=== PATIENT | male | born 1995 | race Caucasian/White ===

== ENCOUNTER 2023-09-21 14:17 | Outpatient (CLI) | payer OTHER, SELFPAY ==
--- NOTE | ~2023-09-21 | XR_ITS ---
EXAMINATION: XR chest 2V Exam Date/Time: 09/21/2023 14:35 CDT HISTORY: R05.3 - Chronic cough X 4 WEEKS Comparison: None. RESULT: Lines, tubes, and devices: None. Lungs and pleura: Clear. Cardiomediastinal silhouette: Normal. Other: No acute osseous or upper abdominal finding. IMPRESSION: No acute cardiopulmonary process. Reviewed, dictated and finalized at location K.
== END 2023-09-21 14:18 | disposition home or self-care (01) ==
PROVIDERS: PCP Family Medicine; Visit Provider Physician Assistant Medical
DX: R05.3 Chronic cough (principal)
CPT/HCPCS: 71046

== ENCOUNTER 2024-04-04 18:52 | Emergency (ER) | payer OTHER, SELFPAY ==
[2024-04-04 19:00] VITALS: BP 136/97; PULSE 84; RESP 23; TEMP 37.1; O2SAT 97
--- NOTE | 2024-04-04 19:32 | ED.URI ---
HPI - URI/Sore Throat General Chief Complaint: Upper Respiratory Infection Stated Complaint: COUGH Time Seen by Provider: 04/04/24 19:32 Source: patient Mode of arrival: ambulatory Limitations: no limitations History of Present Illness HPI Narrative: 48-year-old male presents with complaint of continued cough, chest congestion, shortness of breath with exertion. Patient reports that he was diagnosed with pneumonia approximately 2-3 weeks ago at [facility] urgent care. States pneumonia to was right lower lung. Was given Augmentin. Did have a fever at that time. Reports that fever resolved but cough never improved. Was given albuterol inhaler but states he is having a hard time figuring out how to use it. All systems reviewed and negative except as noted above. Related Data Home Medications Medication Instructions Recorded Confirmed bupropion HCl 300 mg 24 hr tablet, 300 mg PO QAM 08/25/23 02/24/24 extended release (Wellbutrin XL) amoxicillin 875 mg-potassium tablet 04/04/24 clavulanate 125 mg tablet azithromycin 250 mg tablet mg 04/04/24 benzonatate 100 mg capsule mg PO 04/04/24 vilazodone 40 mg tablet mg 04/04/24 Allergies Allergy/AdvReac Type Severity Reaction Status Date / Time No Known Allergies Allergy Verified 04/04/24 19:05 Review of Systems Review of Systems: CONSTITUTIONAL: Denies fever, chills, or sweats. Reports fatigue. EYES: Denies visual changes, redness, or discharge. ENT: Denies rhinorrhea, congestion, sore throat, or otalgia. CARDIOVASCULAR: Denies chest pain, palpitations, or edema. RESPIRATORY: Reports cough, chest congestion, dyspnea with exertion. GASTROINTESTINAL: Denies abdominal pain, nausea, vomiting, or diarrhea. GENITOURINARY: Denies dysuria or hematuria. SKIN: Denies rash or itching. MUSCULOSKELETAL: Denies back pain, joint pain, or myalgia. NEUROLOGIC: Denies headache, numbness, or weakness. PSYCHIATRIC: Denies anxiety or depression. All other systems reviewed are negative, except as documented in HPI. [facility] Past Medical History Medical History COVID Dermatofibrosarcoma protubera of left shoulder Hyperlipidemia Family History Family History Grandparent Carcinoma of colon Family history of pancreatic cancer Mother Family history of malignant neoplasm of breast in first degree relative COVID-19 Breast cancer Father Hyperkalemia Sibling No problems noted. Social History Social History Social History: none Smoking status: Never smoker Second hand tobacco smoke exposure: No Alcohol intake: current Drinks per week: 2 Substance use: never Substance use type: does not use Do You Feel Safe in your Home?: Yes Lack of Transportation: No Lack of Food: Never True Current Housing: I Have Housing Concerned About Future Housing: No Difficulty Paying Gas/Electric Bills: No Difficulty Paying for Meds: No Currently Unemployed: No Education: High School Diploma/GED Difficulty w/ Childcare or Family Care: No Living arrangements: alone Occupation/Education: occupation 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 There is no relevant family history pertinent to the presenting complaint. Exam Narrative: GENERAL: This is a well-nourished, well-developed patient, patient ill-appearing but no acute distress HEAD: normocephalic, atraumatic. EYES: PERRL. Sclera clear/white. Vision is grossly intact. EARS: External ears normal, auditory canals clear and without drainage, TMs normal without perforation. Hearing grossly intact. NOSE: External nose normal with no obvious nasal discharge, nares without redness, no rhinorrhea. THROAT: Mucous membranes moist, posterior pharynx clear. NECK: Neck supple, non-tender without lymphadenopathy, masses or thyromegaly. CARDIOVASCULAR: Regular rate and rhythm without murmurs, gallops, or rubs. RESPIRATORY: Expiratory wheeze to right lower lung patrick otherwise clear Breath sounds equal bilaterally. No rales, or rhonchi. GASTROINTESTINAL: Abdomen soft, non-tender, nondistended. Bowel sounds are active. No hepato-splenomegaly, or palpable masses. No guarding. SKIN: warm, Dry, intact with no suspicious lesions or rash, good texture and turgor. NEURO: awake, alert, and oriented to person, place and time. There were no obvious focal neurologic abnormalities. EXTREMITIES: No joint tenderness, effusion, or edema noted. Course Course Level of Care: Express Care Visit Vital Signs Vital signs: Vital Signs Temperature 37.1 C 04/04/24 19:00 Pulse Rate 84 04/04/24 19:00 Respiratory Rate 23 H 04/04/24 19:00 Blood Pressure 136/97 H 04/04/24 19:00 Pulse Oximetry 97 04/04/24 19:00 Oxygen Delivery Room Air 04/04/24 19:00 Temperature 37.1 C 04/04/24 19:00 Pulse Rate 84 04/04/24 19:00 Respiratory Rate 23 H 04/04/24 19:00 Blood Pressure 136/97 H 04/04/24 19:00 Pulse Oximetry 97 04/04/24 19:00 Oxygen Delivery Room Air 04/04/24 19:00 Reviewed MDM - URI/Sore Throat MDM Narrative Medical decision making narrative: Patient treated with Augmentin for pneumonia approximately 2 weeks ago. Cough did not improve. Due to mycoplasma pneumonia outbreak will treat patient with doxycycline. Patient given AeroChamber to make using albuterol inhaler easier for him. Will prescribe prednisone due to continued cough with mild wheeze. Patient nontoxic, no respiratory distress. Patient is aware of diagnosis, understands and agrees to treatment plan. Anticipatory guidance given. Patient agrees to follow-up as directed and is aware of reasons to seek care at the emergency department. Portions of this record may have been created with voice recognition software Discharge Plan Discharge Clinical Impression: Pneumonia Qualifiers: Pneumonia type: due to unspecified organism Patient Disposition: Home, Self-Care Condition: Stable Instructions: Antibiotic Form, Pneumonia (ED) Additional Instructions: Take medications as prescribed. Use albuterol inhaler every 4-6 hours as needed for cough, wheezing, chest tightness. Take ketd-obg-florrud Mucinex as directed on packaging. Drink at least 64 oz of water a day. For any worsening of symptoms go to the ER. Prescriptions: New benzonatate 200 mg capsule 200 mg PO TID PRN (Reason: cough) Qty: 20 0RF (DME) Aerochamber Plus Z Stat Spacer See Rx Instructions .Route Qty: 1 0RF Rx Instructions: As directed doxycycline hyclate 100 mg capsule 100 mg PO BID 7 Days Qty: 14 0RF prednisone 20 mg tablet 40 mg PO DAILY 5 Days Qty: 10 0RF No Action azithromycin 250 mg tablet benzonatate 100 mg capsule PO amoxicillin-pot clavulanate 875-125 mg tablet vilazodone 40 mg tablet bupropion HCl [Wellbutrin XL] 300 mg tablet extended release 24 hr 300 mg PO QAM albuterol sulfate [ProAir HFA] 90 mcg/actuation HFA aerosol inhaler 1 inh inhalation Q4H PRN (Reason: shortness of breath or wheezing) Qty: 6.7 3RF emtricitabine-tenofovir (TDF) 200-300 mg tablet See Rx Instructions PO .COMPLEX Qty: 30 2RF Rx Instructions: Take 2 tablets prior to and 2 tablets after intercourse. lisdexamfetamine [Vyvanse] 30 mg capsule 30 mg PO DAILY Qty: 30 0RF Rx Instructions: name brand Follow-up/Referrals: Kota Loaiza MD [Primary Care Provider] - Time of Disposition: 19:39
== END 2024-04-04 19:45 | disposition home or self-care (01) ==
PROVIDERS: Emergency Provider Nurse Practitioner Family; PCP Family Medicine
DX: J18.9 Pneumonia, unspecified organism (principal); E78.5 Hyperlipidemia, unspecified; Z86.16 Personal history of COVID-19
CPT/HCPCS: 99213; G0463

== ENCOUNTER 2024-08-03 18:37 | Emergency (ER) | payer OTHER, SELFPAY ==
[2024-08-03 18:49] VITALS: BP 136/83; PULSE 87; RESP 16; TEMP 35.9; O2SAT 98
--- NOTE | 2024-08-03 19:09 | ED.URI ---
HPI - URI/Sore Throat General Chief Complaint: Upper Respiratory Infection Stated Complaint: SINUS CONGESTION Time Seen by Provider: 08/03/24 19:02 Source: patient and RN notes reviewed Mode of arrival: ambulatory Limitations: no limitations History of Present Illness HPI Narrative: Patient presents today complaining of a 2.5 week history of nasal congestion and sinus pressure. States he was seen approximately 1 week ago by telemedicine was prescribed a Medrol Dosepak and an antihistamine, which he states made no improvement of his symptoms. He has also tried ibuprofen and Sudafed without much relief. Related Data Home Medications ?Medication ?Instructions ?Recorded ?Confirmed ?Last Taken ?Type bupropion HCl 300 mg 24 hr tablet, 300 mg PO QAM 08/25/23 02/24/24 Unknown History extended release (Wellbutrin XL) vilazodone 40 mg tablet mg 04/04/24 Unknown History azelastine 137 mcg (0.1 %) nasal intranasal 08/03/24 Unknown History spray fexofenadine 180 mg tablet mg 08/03/24 Unknown History (Allergy Relief (fexofenadine)) Allergies Allergy/AdvReac Type Severity Reaction Status Date / Time No Known Allergies Allergy Verified 08/03/24 18:46 Review of Systems Review of Systems: CONSTITUTIONAL: Denies body aches, fever, chills, or sweats. EYES: Denies visual changes, redness, or discharge. ENT: Denies rhinorrhea, sore throat, or otalgia.+ nasal congestion, sinus pressure CARDIOVASCULAR: Denies chest pain, palpitations, or edema. RESPIRATORY: Denies cough or dyspnea. GASTROINTESTINAL: Denies abdominal pain, nausea, vomiting, or diarrhea. GENITOURINARY: Denies dysuria or hematuria. SKIN: Denies rash, itching, or wounds. MUSCULOSKELETAL: Denies back pain, joint pain, or myalgia. NEUROLOGIC: Denies headache, numbness, tingling, or weakness. PSYCH: Denies depression or anxiety. [facility] Past Medical History Medical History Dermatofibrosarcoma protubera of left shoulder Hyperlipidemia COVID Family History Family History Grandparent Carcinoma of colon Family history of pancreatic cancer Mother Family history of malignant neoplasm of breast in first degree relative COVID-19 Breast cancer Father Hyperkalemia Sibling No problems noted. Social History Social History Social History: none Smoking status: Never smoker Second hand tobacco smoke exposure: No Alcohol intake: current Drinks per week: 2 Substance use: never Substance use type: does not use Do You Feel Safe in your Home?: Yes Lack of Transportation: No Lack of Food: Never True Current Housing: I Have Housing Concerned About Future Housing: No Difficulty Paying Gas/Electric Bills: No Difficulty Paying for Meds: No Currently Unemployed: No Education: High School Diploma/GED Difficulty w/ Childcare or Family Care: No Living arrangements: alone Occupation/Education: occupation 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 Please see nursing chart for further information. There is no relevant family history pertinent to the presenting complaint Exam Narrative: GENERAL: Well-appearing, well-nourished, and in no acute distress. HEAD: Normocephalic, atraumatic. EYES: EOMI. No redness or drainage. Conjunctivae normal. ENT: Mucous membranes pink and moist. Nares congested. No rhinorrhea. No frontal sinus tenderness. Right maxillary sinus tenderness to palpation. TMs normal bilaterally. Throat normal. Uvula midline. NECK: Normal AROM. Supple. No lymphadenopathy. CHEST: No respiratory distress. Clear to auscultation. HEART: Regular rate and rhythm. No murmur appreciated. EXTREMITIES: Normal range of motion. No edema. SKIN: Warm, dry, no rash. Capillary refill normal. Normal skin turgor. NEURO: No focal deficits. Alert and oriented x3. Gait steady. PSYCH: Normal affect. No signs of depression or anxiety. Course Course Level of Care: Express Care Visit Vital Signs Vital signs: Vital Signs Temperature 96.6 F L 08/03/24 18:49 Pulse Rate 87 08/03/24 18:49 Respiratory Rate 16 08/03/24 18:49 Blood Pressure 136/83 08/03/24 18:49 Pulse Oximetry 98 08/03/24 18:49 Temperature 96.6 F L 08/03/24 18:49 Pulse Rate 87 08/03/24 18:49 Respiratory Rate 16 08/03/24 18:49 Blood Pressure 136/83 08/03/24 18:49 Pulse Oximetry 98 08/03/24 18:49 Reviewed MDM - URI/Sore Throat MDM Narrative Medical decision making narrative: Patient will be treated for sinusitis with a course of Augmentin. Anticipatory guidance given. Differential Diagnosis Differential diagnosis: Likely upper respiratory infection, otitis media, sinusitis and viral infection Critical Care Time Critical Care Time Critical Care Time: No Discharge Plan Discharge Clinical Impression: Sinusitis Qualifiers: Sinusitis location: maxillary Chronicity: acute Recurrence: non-recurrent Qualified Code(s): J01.00 - Acute maxillary sinusitis, unspecified Patient Disposition: Home, Self-Care Condition: Stable Instructions: Sinusitis (ED) Additional Instructions: Please take the Augmentin as prescribed until gone. You may also continue [id number] medications such as ibuprofen as needed. Follow-up with your PCP in 3 days if symptoms are not improving. Your blood pressure was elevated above 120/80 today at Urgent Care. This puts you above the threshold for follow up. Please schedule a followup visit with your personal physician as soon as possible, for further evaluation and treatment. Even blood pressure exceeding 120/80 may indicate pre-hypertension. Patient Language: Macedonian Prescriptions: New amoxicillin-pot clavulanate 875-125 mg tablet 1 tablet PO Q12H 7 Days Qty: 14 0RF No Action vilazodone 40 mg tablet (DME) Aerochamber Plus Z Stat Spacer See Rx Instructions .Route Qty: 1 0RF Rx Instructions: As directed fexofenadine [Allergy Relief (fexofenadine)] 180 mg tablet azelastine 137 mcg (0.1 %) spray,non-aerosol INTRANASAL bupropion HCl [Wellbutrin XL] 300 mg tablet extended release 24 hr 300 mg PO QAM albuterol sulfate [ProAir HFA] 90 mcg/actuation HFA aerosol inhaler 1 inh inhalation Q4H PRN (Reason: shortness of breath or wheezing) Qty: 6.7 3RF lisdexamfetamine [Vyvanse] 30 mg capsule 30 mg PO DAILY Qty: 30 0RF Rx Instructions: name brand Follow-up/Referrals: Kota Loaiza MD [Primary Care Provider] - Time of Disposition: 19:11
== END 2024-08-03 19:13 | disposition home or self-care (01) ==
PROVIDERS: Emergency Provider Nurse Practitioner; PCP Family Medicine
DX: J01.00 Acute maxillary sinusitis, unspecified (principal); E78.5 Hyperlipidemia, unspecified; Z86.16 Personal history of COVID-19; Z85.831 Personal history of malignant neoplasm of soft tissue
CPT/HCPCS: 99213; G0463

== ENCOUNTER 2024-08-10 09:22 | Emergency (ER) | payer OTHER, SELFPAY ==
[2024-08-10 09:26] VITALS: BP 121/82; PULSE 98; RESP 16; TEMP 36.4; O2SAT 99
--- NOTE | 2024-08-10 09:28 | ED.URI ---
HPI - URI/Sore Throat General Stated Complaint: SINUS CONGESTION Time Seen by Provider: 08/10/24 09:30 Source: patient Mode of arrival: ambulatory Limitations: no limitations History of Present Illness HPI Narrative: Dean is a 28-year-old male patient presenting to the clinic today with complaints of sinus congestion for over 3 weeks. He reports he initially was seen by tele doc and they gave him some steroids and Flonase. Was seen here 1 week ago and given prescription for amoxicillin. States that his symptoms are improving. Is having pain and pressure over the right maxilla/ethmoid area. Denies any chest pain or shortness of breath. Did have chills last night without fever. Related Data Home Medications ?Medication ?Instructions ?Recorded ?Confirmed ?Last Taken ?Type bupropion HCl 300 mg 24 hr tablet, 300 mg PO QAM 08/25/23 02/24/24 Unknown History extended release (Wellbutrin XL) vilazodone 40 mg tablet mg 04/04/24 Unknown History azelastine 137 mcg (0.1 %) nasal intranasal 08/03/24 Unknown History spray fexofenadine 180 mg tablet mg 08/03/24 Unknown History (Allergy Relief (fexofenadine)) Allergies Allergy/AdvReac Type Severity Reaction Status Date / Time No Known Allergies Allergy Verified 08/10/24 09:31 Review of Systems Review of Systems: Pertinent positives per HPI. Patient denies any fever, chills, rash, headache, visual changes, dizziness, cough, shortness of breath, chest pain, palpitations, nausea, vomiting, diarrhea, constipation, abdominal pain, or any urinary issues. PMFSH Past Medical History Medical History Dermatofibrosarcoma protubera of left shoulder Hyperlipidemia COVID Family History Family History Grandparent Carcinoma of colon Family history of pancreatic cancer Mother Family history of malignant neoplasm of breast in first degree relative COVID-19 Breast cancer Father Hyperkalemia Sibling No problems noted. Social History Social History Social History: none Smoking status: Never smoker Second hand tobacco smoke exposure: No Alcohol intake: current Drinks per week: 2 Substance use: never Substance use type: does not use Do You Feel Safe in your Home?: Yes Lack of Transportation: No Lack of Food: Never True Current Housing: I Have Housing Concerned About Future Housing: No Difficulty Paying Gas/Electric Bills: No Difficulty Paying for Meds: No Currently Unemployed: No Education: High School Diploma/GED Difficulty w/ Childcare or Family Care: No Living arrangements: alone Occupation/Education: occupation 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 There is no relevant family history pertinent to the patient complaint. Exam Narrative: General: Well-developed, well nourished, in no apparent distress Head: Normocephalic, atraumatic Eyes: Pupils equally round and reactive to light bilaterally, EOM intact, sclera and conjunctive clear, no discharge, lids normal Ears: TMs intact and clear, ear canals clear, no drainage, grossly hearing normal. Nose: Nares patent, no discharge, moderate inflammation, right maxillary and ethmoid sinus tenderness. Mouth: Oral pharynx without lesions or masses, good dentition, MMM. Neck: Supple, trachea midline, no enlargement of anterior or posterior cervical nodes, no thyroid masses or goiter palpable. Cardio: Regular rate and rhythm, s1 and s2 normal, no murmur appreciated. Resp: Clear to auscultation bilaterally, no rhonchi, rales, wheezing or rubs Course Course Emergency Course: Portions of this record may have been created with voice recognition software. Level of Care: Express Care Visit Vital Signs Vital signs: Vital Signs Temperature 36.4 C 08/10/24 09:26 Pulse Rate 98 08/10/24 09:26 Respiratory Rate 16 08/10/24 09:26 Blood Pressure 121/82 08/10/24 09:26 Pulse Oximetry 99 08/10/24 09:26 Oxygen Delivery Room Air 08/10/24 09:26 Temperature 36.4 C 08/10/24 09:26 Pulse Rate 98 08/10/24 09:26 Respiratory Rate 16 08/10/24 09:26 Blood Pressure 121/82 08/10/24 09:26 Pulse Oximetry 99 08/10/24 09:26 Oxygen Delivery Room Air 08/10/24 09:26 Vital signs reviewed MDM - URI/Sore Throat MDM Narrative Medical decision making narrative: At the time of visit patient is resting comfortably on the exam table. Patient appears to be nontoxic. Plan: I suspect patient has right ethmoid/maxillary sinusitis. Prescription for doxycycline and prednisone was sent to the pharmacy. Supportive measures were discussed with the patient and they voiced understanding discharge instructions and agrees to treatment plan. Return precautions reviewed Differential Diagnosis Differential diagnosis: Likely upper respiratory infection, otitis media, sinusitis, viral infection, bronchitis, influenza, pharyngitis and other (COVID) Discharge Plan Discharge Clinical Impression: Acute bacterial rhinosinusitis Patient Disposition: Home, Self-Care Condition: Stable Instructions: Antibiotic Form, Rhinosinusitis (ED) Additional Instructions: Take prescription medications only as prescribed-doxycycline and prednisone Increase fluids and stay well hydrated Tylenol/motrin for pain/fever Flonase and OTC antihistamines as directed Vicks vapor rub to open sinuses Sinus rinses for congestion Cepacol spray, cough drops, throat lozenges, warm tea with honey/lemon, gargle salt water to soothe throat BRAT diet for diarrhea Clear liquids x 24 hours then advance as tolerated for nausea/vomiting Go to the ED if you develop a worsening in your condition- high fever not controlled by Tylenol or Motrin, dehydration, weakness, lethargy, shortness of breath, or chest pain. Follow up with your PCP in 3-5 days if symptoms persist. Patient Language: Maori Prescriptions: New prednisone 20 mg tablet 40 mg PO DAILY 5 Days Qty: 10 0RF doxycycline monohydrate 100 mg capsule 100 mg PO BID 10 Days Qty: 20 0RF No Action vilazodone 40 mg tablet (DME) Aerochamber Plus Z Stat Spacer See Rx Instructions .Route Qty: 1 0RF Rx Instructions: As directed fexofenadine [Allergy Relief (fexofenadine)] 180 mg tablet azelastine 137 mcg (0.1 %) spray,non-aerosol INTRANASAL amoxicillin-pot clavulanate 875-125 mg tablet 1 tablet PO Q12H 7 Days Qty: 14 0RF bupropion HCl [Wellbutrin XL] 300 mg tablet extended release 24 hr 300 mg PO QAM albuterol sulfate [ProAir HFA] 90 mcg/actuation HFA aerosol inhaler 1 inh inhalation Q4H PRN (Reason: shortness of breath or wheezing) Qty: 6.7 3RF lisdexamfetamine [Vyvanse] 30 mg capsule 30 mg PO DAILY Qty: 30 0RF Rx Instructions: name brand Follow-up/Referrals: Phil Hernandez MD [Physician] - 2 Days (Sinusitis) Kota Loaiza MD [Primary Care Provider] - Time of Disposition: 09:32 Quality NIHSS Nursing Documentation ED NIHSS nursing documentation: reviewed/agree
== END 2024-08-10 09:35 | disposition home or self-care (01) ==
PROVIDERS: Emergency Provider Nurse Practitioner Family; PCP Family Medicine
DX: J01.90 Acute sinusitis, unspecified (principal); E78.5 Hyperlipidemia, unspecified; Z86.16 Personal history of COVID-19; Z85.831 Personal history of malignant neoplasm of soft tissue
CPT/HCPCS: 99213; G0463

== ENCOUNTER 2024-09-04 15:28 | Emergency (ER) | payer OTHER, SELFPAY ==
[2024-09-04 15:46] VITALS: BP 139/85; PULSE 92; RESP 16; TEMP 36.5; O2SAT 99
--- NOTE | 2024-09-04 16:25 | ED_ITS ---
HPI - URI/Sore Throat General Chief Complaint: Upper Respiratory Infection Stated Complaint: Sinus Infection Symptoms Time Seen by Provider: 09/04/24 16:25 Source: patient Mode of arrival: ambulatory Limitations: no limitations History of Present Illness HPI Narrative: Patient presents to the clinic with complaints of congestion x 8 days. He states he has been taking DayQuil and NyQuil as well as Sudafed Denies any shortness for breath or difficulty swallowing. Related Data Home Medications ?Medication ?Instructions ?Recorded ?Confirmed ?Last Taken ?Type bupropion HCl 300 mg 24 hr tablet, 300 mg PO QAM 08/25/23 09/04/24 Unknown History extended release (Wellbutrin XL) Allergies Allergy/AdvReac Type Severity Reaction Status Date / Time No Known Allergies Allergy Verified 09/04/24 15:52 Review of Systems Review of Systems: CONSTITUTIONAL: Denies body aches, fever, chills, or sweats. EYES: Denies visual changes, redness, or discharge. ENT: Reports rhinorrhea and congestion. Denies sore throat or otalgia. CARDIOVASCULAR: Denies chest pain, palpitations, or edema. RESPIRATORY: Denies cough or dyspnea. GASTROINTESTINAL: Denies abdominal pain, nausea, vomiting, or diarrhea. GENITOURINARY: Denies dysuria or hematuria. SKIN: Denies rash, itching, or wounds. MUSCULOSKELETAL: Denies back pain, joint pain, or myalgia. NEUROLOGIC: Denies headache, numbness, tingling, or weakness. PSYCH: Denies depression or anxiety. All systems reviewed & are unremarkable except as noted in HPI and below PMFSH Past Medical History Medical History Dermatofibrosarcoma protubera of left shoulder Hyperlipidemia COVID Family History Family History Grandparent Carcinoma of colon Family history of pancreatic cancer Mother Family history of malignant neoplasm of breast in first degree relative COVID-19 Breast cancer Father Hyperkalemia Sibling No problems noted. Social History Social History Social History: none Smoking status: Never smoker Second hand tobacco smoke exposure: No Alcohol intake: current Drinks per week: 2 Substance use: never Substance use type: does not use Do You Feel Safe in your Home?: Yes Lack of Transportation: No Lack of Food: Never True Current Housing: I Have Housing Concerned About Future Housing: No Difficulty Paying Gas/Electric Bills: No Difficulty Paying for Meds: No Currently Unemployed: No Education: High School Diploma/GED Difficulty w/ Childcare or Family Care: No Living arrangements: alone Occupation/Education: occupation 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 Please see nursing chart for further information. There is no relevant family history pertinent to the presenting complaint. Exam Narrative: GENERAL: Well-appearing, well-nourished, and in no acute distress. EYES: EOMI. No redness or drainage. Conjunctivae normal. ENT: Mucous membranes pink and moist. Nares clear. TMs fluid filled, but intact. Throat normal without tonsillar exudate, uvula midline. Rhinorrhea and nasal congestion noted. NECK: Normal AROM. Supple. No lymphadenopathy. CHEST: No respiratory distress. Clear to auscultation. HEART: Regular rate and rhythm. No murmur appreciated. Normal peripheral pulses. ABDOMEN: Soft, nontender, nondistended, normal active bowel sounds. SKIN: Warm, dry, no rash. Capillary refill normal. Normal skin turgor. NEURO: No focal deficits. Alert and oriented x3. Gait steady. PSYCH: Normal affect. No signs of depression or anxiety. Course Course Level of Care: Express Care Visit Vital Signs Vital signs: Vital Signs Temperature 97.7 F 09/04/24 15:46 Pulse Rate 92 09/04/24 15:46 Respiratory Rate 16 09/04/24 15:46 Blood Pressure 139/85 09/04/24 15:46 Pulse Oximetry 99 09/04/24 15:46 Temperature 97.7 F 09/04/24 15:46 Pulse Rate 92 09/04/24 15:46 Respiratory Rate 16 09/04/24 15:46 Blood Pressure 139/85 09/04/24 15:46 Pulse Oximetry 99 09/04/24 15:46 Reviewed. MDM - URI/Sore Throat MDM Narrative Medical decision making narrative: Discussed physical exam findings. Advised supportive measures and signs/symptoms to go to the ER. Pt is appropriate for outpt treatment and follow up. Differential Diagnosis Differential diagnosis: Likely upper respiratory infection, sinusitis and viral infection Critical Care Time Critical Care Time Critical Care Time: No Discharge Plan Discharge Clinical Impression: Acute bacterial sinusitis Patient Disposition: Home Condition: Stable Instructions: Antibiotic Form, Sinusitis (ED) Additional Instructions: Take antibiotic as prescribed. Recommend Flonase spray and Zyrtec (or Claritin/Aracely) Tylenol 1000mg every 8 hours as needed for pain Symptomatic treatment includes: rest, fluids, and increase humidity of the air at home. Follow up with your primary care provider in 1 week. Go to the ER for worsening symptoms or concerns. Patient Language: Ukrainian Prescriptions: New amoxicillin-pot clavulanate 875-125 mg tablet 1 tablet PO Q12H 7 Days Qty: 14 0RF No Action (DME) Aerochamber Plus Z Stat Spacer See Rx Instructions .Route Qty: 1 0RF Rx Instructions: As directed bupropion HCl [Wellbutrin XL] 300 mg tablet extended release 24 hr 300 mg PO QAM albuterol sulfate [ProAir HFA] 90 mcg/actuation HFA aerosol inhaler 1 inh inhalation Q4H PRN (Reason: shortness of breath or wheezing) Qty: 6.7 3RF lisdexamfetamine [Vyvanse] 30 mg capsule 30 mg PO DAILY Qty: 30 0RF Rx Instructions: name brand Follow-up/Referrals: PHYSICIAN,PORTABLE CANTEEN OPERATOR [Primary Care Provider] - Time of Disposition: 16:28
== END 2024-09-04 16:31 | disposition home or self-care (01) ==
DX: J01.90 Acute sinusitis, unspecified (principal); E78.5 Hyperlipidemia, unspecified; Z86.16 Personal history of COVID-19; Z85.831 Personal history of malignant neoplasm of soft tissue
CPT/HCPCS: 99213; G0463

== ENCOUNTER 2024-09-21 10:43 | Emergency (ER) | payer OTHER, SELFPAY ==
[2024-09-21 10:50] VITALS: BP 132/88; PULSE 67; RESP 16; TEMP 36.3; O2SAT 100
--- NOTE | 2024-09-21 11:21 | ED_ITS ---
HPI - Skin/Abscess/Foreign Bdy General Chief complaint: Skin/Abscess/Foreign Body Stated complaint: Skin/Abscess/Foreign Body Time Seen by Provider: 09/21/24 11:00 Source: patient and RN notes reviewed Mode of arrival: ambulatory Limitations: no limitations History of Present Illness HPI narrative: 29-year-old male presents Express Care complaining of sores in his mouth and pain behind his left ear since this morning. Patient woke up with the symptoms. Patient stated he noticed having sores to the upper gum line in his left upper mouth. 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 Patient s ays he normally gets cold sores on his lips since never had sores in his mouth or his genitals. Patient states pain behind his left ear in between the temporal occipital bone region. Patient denies any redness or swelling behind his ear. Patient denies any ear pain. Patient denies any fevers, chills, nausea, vomiting, or any other upper respiratory symptoms. Related Data Home Medications Medication Instructions Recorded Confirmed Last Taken Type bupropion HCl 300 mg 24 hr tablet, 300 mg PO QAM 08/25/23 09/12/24 Unknown History extended release (Wellbutrin XL) vilazodone 40 mg tablet mg PO DAILY 09/12/24 09/12/24 Unknown History Allergies Allergy/AdvReac Type Severity Reaction Status Date / Time No Known Allergies Allergy Verified 09/21/24 10:54 Review of Systems Review of Systems: CONSTITUTIONAL: Denies fever, chills, or sweats. EYES: Denies visual changes, redness, or discharge. ENT: Denies rhinorrhea, congestion, sore throat, or otalgia. Positive for pain behind the ear. Mouth: Positive for mouth sores. CARDIOVASCULAR: Denies chest pain, palpitations, or edema. RESPIRATORY: Denies cough or dyspnea. GASTROINTESTINAL: Denies abdominal pain, nausea, vomiting, or diarrhea. GENITOURINARY: Denies dysuria or hematuria. SKIN: Denies rash or itching. MUSCULOSKELETAL: Denies back pain, joint pain, or myalgia. NEUROLOGIC: Denies headache, numbness, or weakness. PSYCHIATRIC: Denies anxiety or depression. All other systems reviewed are negative, except as documented in HPI. [facility] Past Medical History Medical History Chronic recurrent sinusitis Hair loss Exposure to lead Persistent cough Headache On pre-exposure prophylaxis for HIV Hypercalcemia Hypercalcemia Localized swelling, mass and lump, neck Acute sinusitis Leukoplakia oral mucosa Anxiety Fatigue Dermatofibrosarcoma protubera of left shoulder Hyperlipidemia COVID Family History Family History Grandparent Carcinoma of colon Family history of pancreatic cancer Mother Family history of malignant neoplasm of breast in first degree relative COVID-19 Breast cancer Father Hyperkalemia Sibling No problems noted. Social History Social History Social History: none Smoking status: Never smoker Second hand tobacco smoke exposure: No Alcohol intake: current Drinks per week: 2 Substance use: never Substance use type: does not use Do You Feel Safe in your Home?: Yes Lack of Transportation: No Lack of Food: Never True Current Housing: I Have Housing Concerned About Future Housing: No Difficulty Paying Gas/Electric Bills: No Difficulty Paying for Meds: No Currently Unemployed: No Education: High School Diploma/GED Difficulty w/ Childcare or Family Care: No Living arrangements: alone Occupation/Education: occupation 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 There is no relevant family history pertinent to the patient complaint. Exam Narrative: GENERAL: This is a well-nourished, well-developed adult, in no apparent distress. They are non ill-appearing, nontoxic appearing. HEAD: normocephalic, atraumatic. EYES: Sclera clear/white. Conjunctiva normal. Vision is grossly intact. Extraocular movements intact EARS: External ears normal, auditory canals clear and without drainage, TMs nor mal without perforation. Hearing grossly intact. NOSE: External nose normal with no obvious nasal discharge, nasal turbinates without redness, no rhinorrhea. THROAT: Mucous membranes moist, posterior pharynx clear, without erythema or swelling. Uvula midline. MOUTH: Multiple painful circular vesicular lesions to the left upper gum line above the teeth. There are approximately 3 lesions. No gingivitis. Teeth intact. No tooth decay present. Tongue normal without swelling or suspicious lesions. No swelling under the tongue or tenderness. NECK: Neck supple, non-tender without lymphadenopathy, masses or thyromegaly. CARDIOVASCULAR: Regular rate and rhythm without murmurs, gallops, or rubs. RESPIRATORY: Clear to auscultation. Breath sounds equal bilaterally. No wheezes, rales, or rhonchi. SKIN: Scalp: Erythema located near the left temporal and occipital region of the skull. Area of erythema less than 1 cm in diameter. Mild tenderness to palpation. No swelling, discharge, or exudate. No area of fluctuance or induration. No redness or swelling behind the left ear. No mastoid tenderness. No redness or swelling to the mastoid process. NEURO: awake, alert, and oriented to person, place and time. There were no obvious focal neurologic abnormalities. EXTREMITIES: No joint tenderness, effusion, or edema noted. BACK: Nontender without deformity. No CVA tenderness. Course Course Emergency Course: Portions of this record may have been created with voice recognition software Level of Care: Express Care Visit Vital Signs Vital signs: Vital Signs Temperature 97.4 F L 09/21/24 10:50 Pulse Rate 67 09/21/24 10:50 Respiratory Rate 16 09/21/24 10:50 Blood Pressure 132/88 09/21/24 10:50 Pulse Oximetry 100 09/21/24 10:50 Temperature 97.4 F L 09/21/24 10:50 Pulse Rate 67 09/21/24 10:50 Respiratory Rate 16 09/21/24 10:50 Blood Pressure 132/88 09/21/24 10:50 Pulse Oximetry 100 09/21/24 10:50 Reviewed MDM - Skin/Abscess/Foreign Bdy MDM Narrative Medical decision making narrative: Likely the source of related to the herpes simplex virus. Patient recent blood work that state he was positive for HSV 1. Will treat with acyclovir. Offered patient viral swab testing to confirm the sores are related to herpes and he declined. Is likely patient has a small superficial skin infection to the back of his scalp. Will give him mupirocin ointment. No evidence of mastoiditis, no redness or swelling behind the left ear or near the mastoid process. No evidence of infection side the left ear. Discussed physical exam findings. Advised supportive measures and signs/symptoms to go to the ER. Pt is appropriate for outpt treatment and f/u. Differential Diagnosis Differential diagnosis: Likely cellulitis and other (Superficial skin infection, abscess, canker sore, herpes virus) Critical Care Time Critical Care Time Critical Care Time: No Discharge Plan Discharge Clinical Impression: Gingivostomatitis, Superficial skin infection Patient Disposition: Home Condition: Stable Instructions: Gingivostomatitis (ED) Additional Instructions: It is possible the sores in your mouth are related to the herpes simplex virus given your positive result. Please take acyclovir as directed. Apply mupirocin ointment as directed to the affected area on your head. Follow-up with primary care provider in 3-5 days. If you develop any fevers, increasing redness, pain, hearing problems, or any other concerns please go to the ER immediately. Patient Language: Romanian Prescriptions: New acyclovir 400 mg tablet 400 mg PO TID 7 Days Qty: 21 0RF mupirocin calcium 2 % cream 1 applic topical TID 7 Days Qty: 30 0RF No Action (DME) Aerochamber Plus Z Stat Spacer See Rx Instructions .Route Qty: 1 0RF Rx Instructions: As directed bupropion HCl [Wellbutrin XL] 300 mg tablet extended release 24 hr 300 mg PO QAM vilazodone 40 mg tablet PO DAILY albuterol sulfate [ProAir HFA] 90 mcg/actuation HFA aerosol inhaler 1 inh inhalation Q4H PRN (Reason: shortness of breath or wheezing) Qty: 6.7 3RF lisdexamfetamine [Vyvanse] 30 mg capsule 30 mg PO DAILY Qty: 30 0RF Rx Instructions: name brand Follow-up/Referrals: Kota Loaiza MD [Primary Care Provider] - Time of Disposition: 11:19
== END 2024-09-21 11:24 | disposition home or self-care (01) ==
PROVIDERS: PCP Family Medicine
DX: K05.10 Chronic gingivitis, plaque induced (principal); L08.9 Local infection of the skin and subcutaneous tissue, unspecified; E78.5 Hyperlipidemia, unspecified; F41.9 Anxiety disorder, unspecified; Z86.16 Personal history of COVID-19
CPT/HCPCS: 99213; G0463

== ENCOUNTER 2025-02-10 13:11 | Emergency (ER) | payer OTHER, SELFPAY ==
[2025-02-10 13:27] VITALS: BP 141/88; PULSE 96; RESP 16; TEMP 36.3; O2SAT 100
--- NOTE | 2025-02-10 13:46 | ED_ITS ---
HPI - URI/Sore Throat General Chief Complaint: Upper Respiratory Infection Stated Complaint: strep symptoms Time Seen by Provider: 02/10/25 13:46 Source: patient, RN notes reviewed and old records reviewed Mode of arrival: ambulatory Limitations: no limitations History of Present Illness HPI Narrative: 29 year old male presents to [facility] with complaints of sore throat for the past 5 days with his tonsils swollen. Patient reports also that for the past 3 weeks he has had sinus congestion and drainage with history of sinus infections and prior sinus surgery. Patient reports no fevers and has been using prescribed nasl spray without improvement along with some Sudafed. MD elicited complaint: other (sore throat for 5 days) Pertinent past history: sinusitis, asthma (childhood) and other (sinus surgery) Onset (ago): week(s) (3 weeks sinus congestion with drainage 5 days sore throat) Severity: moderate Able to tolerate fluids by mouth: Yes Treatments prior to arrival: other (nasal spray, sudafed) Related Data Allergies Allergy/AdvReac Type Severity Reaction Status Date / Time No Known Allergies Allergy Verified 02/10/25 13:25 Review of Systems Review of Systems: CONSTITUTIONAL: Denies malaise, chills, sweats, or fever. EYES: Denies visual changes, redness, or discharge. ENT: Reports rhinorrhea, congestion, sinus pain,no otalgia and positive for sore throat. CARDIOVASCULAR: Denies chest pain, palpitations, or edema. RESPIRATORY: Reports no acute cough.? Denies dyspnea. GASTROINTESTINAL: Denies abdominal pain, nausea, vomiting, diarrhea SKIN: Denies rash or itching. MUSCULOSKELETAL: Denies myalgia. NEUROLOGIC: Denies headache. All systems reviewed & are unremarkable except as noted in HPI and below PMFSH Past Medical History Medical History (Updated 02/11/25 @ 18:20 by Gloria Ferrell NP) Attention Deficit Hyperactivity Disorder (ADHD) Chronic recurrent sinusitis Hair loss Exposure to lead Persistent cough Headache On pre-exposure prophylaxis for HIV Hypercalcemia Hypercalcemia Localized swelling, mass and lump, neck Acute sinusitis Leukoplakia oral mucosa Anxiety Fatigue Dermatofibrosarcoma protubera of left shoulder Hyperlipidemia COVID Surgical History Surgical History (Updated 02/11/25 @ 18:14 by Gloria Ferrell NP) H/O sinus surgery Liver donor Family History Family History Grandparent Carcinoma of colon Family history of pancreatic cancer Mother Family history of malignant neoplasm of breast in first degree relative COVID-19 Breast cancer Father Hyperkalemia Sibling No problems noted. Social History Social History Social History: none Smoking status: Never smoker Second hand tobacco smoke exposure: No Alcohol intake: current Drinks per week: 2 Substance use: never Substance use type: does not use Do You Feel Safe in your Home?: Yes Lack of Transportation: No Lack of Food: Never True Current Housing: I Have Housing Concerned About Future Housing: No Difficulty Paying Gas/Electric Bills: No Difficulty Paying for Meds: No Currently Unemployed: No Education: High School Diploma/GED Difficulty w/ Childcare or Family Care: No Living arrangements: alone Occupation/Education: occupation 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 There is no relevant family history pertinent to the presenting complaint Exam Narrative: GENERAL: Well-appearing, well-nourished, and in no acute distress. HEAD: Normocephalic EYES: PERRLA, conjunctivae clear ENT: Nares clear, turbinates edematous and erythematous, clear discharge, sinus pressure. Mucous membranes moist. TM pearly fonseca with dull light reflex bilaterally; no tragal tenderness. Oropharynx erythematous without lesions. Tonsils red and enlarged and without exudate, no drooling, no hoarseness, no trismus, uvula midline. NECK: Supple. lymphadenopathy CHEST: Clear to auscultation, breath sounds equal. No wheezing, rhonchi, rales, or stridor. No respiratory distress, speaks in full sentences.no acute cough, SAO2 100% on room air HEART: Regular rate and rhythm. No murmur heard. SKIN: Warm, dry, no rash. NEURO: Alert and oriented x3. PSYCH: Normal mood and affect Course Course Emergency Course: Patient is aware of diagnosis, understands and agrees to treatment plan.? An ticipatory guidance given.? Patient agrees to follow-up as directed and is aware of reasons to seek care at the emergency department. Portions of this record may have been created with voice recognition software Level of Care: Express Care Visit Vital Signs Vital signs: Vital Signs Temperature 36.3 C L 02/10/25 13:27 Pulse Rate 96 02/10/25 13:27 Respiratory Rate 16 02/10/25 13:27 Blood Pressure 141/88 H 02/10/25 13:27 Pulse Oximetry 100 02/10/25 13:27 Temperature 36.3 C L 02/10/25 13:27 Pulse Rate 96 02/10/25 13:27 Respiratory Rate 16 02/10/25 13:27 Blood Pressure 141/88 H 02/10/25 13:27 Pulse Oximetry 100 02/10/25 13:27 Reviewed MDM - URI/Sore Throat MDM Narrative Medical decision making narrative: Differential diagnosis considered: Menjivar virus, strep pharyngitis, allergic rhinitis, upper respiratory tract infection, sinusitis, rhinosinusitis, nasopharyngitis. viral pharyngitis, otitis media, otitis externa, pneumonia, bronchitis, viral cough syndrome, viral syndrome, and influenza.? Exam findings show no acute concerns or changes; patient is non-toxic appearing and is in no distress.? Patient is appropriate for outpatient treatment and follow-up. Differential Diagnosis Differential diagnosis: Likely upper respiratory infection, sinusitis, viral infection, pharyngitis and other (strep pharyngitis) Medical Records Attestation: I reviewed the patient's medical records. Lab Data Attestation: I reviewed the patient's lab results. Lab results narrative: strep screen negative, culture sent Labs: Lab Results 02/10/25 Range/Units 13:53 POC Grp A Strep Screen Negative (Negative) reviewed Critical Care Time Critical Care Time Critical Care Time: No Discharge Plan Discharge Clinical Impression: Sinusitis Qualifiers: Sinusitis location: pansinusitis Chronicity: acute Recurrence: not specified as recurrent Qualified Code(s): J01.40 - Acute pansinusitis, unspecified Pharyngitis Qualifiers: Pharyngitis/tonsillitis etiology: unspecified etiology Qualified Code(s): J02.9 - Acute pharyngitis, unspecified Patient Disposition: Home Condition: Stable Instructions: Antibiotic Form, Pharyngitis (ED), Sinusitis (ED) Additional Instructions: Increase fluids especially juices and water [id number] cough and cold medicine of your choice for your symptoms continue your nasal spray daily prescribed Zyrtec Claritin or Aracely daily include heat to the face 20-30 minutes 4-6 times a day for pain Salt water gargles, throat lozenges or throat sprays as desired Antibiotic as directed--finished the medication If your symptoms persist, change or worsen significantly before you can contact your personal physician then please, without delay, go to the emergency department for further evaluation. Follow-up with PCP in 7-10 days or sooner if needed Follow up with PCP soon in regards to your blood pressure which is elevated above threshold for referral. Blood pressure above 120/80 may indicate pre- hypertension.141/88 Patient Language: Kyrgyz Prescriptions: New amoxicillin-pot clavulanate 875-125 mg tablet 1 tablet PO Q12H Qty: 20 0RF Rx Instructions: take with food. recommend taking probiotic or eating Activia yogurt while taking No Action lisdexamfetamine [Vyvanse] 30 mg capsule 30 mg PO DAILY Qty: 30 0RF Rx Instructions: does not want name brand Follow-up/Referrals: Kota Loaiza MD [Primary Care Provider, Family Practice] Time of Disposition: 13:58 Quality Antoni Coma Scale Eyes: Open Verbal: Oriented and Alert Motor: Follows Commands Jackson Coma Total Score: 15
[2025-02-10 13:54] LABS: EDSTREPNEGPOS1 Negative (Negative)
== END 2025-02-10 14:06 | disposition home or self-care (01) ==
PROVIDERS: Emergency Provider Registered Nurse; PCP Family Medicine
DX: J01.40 Acute pansinusitis, unspecified (principal); J02.9 Acute pharyngitis, unspecified; E78.5 Hyperlipidemia, unspecified; F90.9 Attention-deficit hyperactivity disorder, unspecified type; Z86.16 Personal history of COVID-19
CPT/HCPCS: 87081; 87880; 99213; G0463